=== PATIENT | female | born 1940 | race Caucasian/White ===

== ENCOUNTER → 2016-08-20 | Outpatient (CLI) | payer MEDICARE, BC ==
[~2016-08-20] MED LIST: ACTOS; ALBUTEROL17 GM; ALEVE; AMLODIPINE-OLM1 EACH PO; ASPIRIN81 M2 PO; ASPIRIN81 MG PO; CENTRUM SILVER PO; CLOPIDOGREL75 MG PO; COREG12.5 MG PO; COREG6.25 MG PO; DORZOLAMIDE-TIM10 ML OU; EYE DROP; FAMOTIDINE PO; FERRO-TIME325 MG PO; FERROUS GLUCON325 M1 PO; FERROUS SULFAT325 MG PO; FOSAMAX PO; FUROSEMIDE40 MG PO; GLUCOPHAGE850 MG PO; GLYBURIDE2.5 M1 PO; HCTZ PO; HYDROCODONE-APA1 T30 PO; LASIX PO; LASIX20 MG PO; LIPITOR40 MG PO; LIPITOR80 MG PO; LISINOPRIL20 MG PO; METFORMIN HCL500 M1 PO; METFORMIN HCL500 M4 PO; MONTELUKAST SOD10 MG PO; NITROSTAT0.4 MG SL; OMEPRAZOLE40 M1 PO; OMEPRAZOLE40 MG PO; PIOGLITAZONE HC30 MG PO; PLAVIX PO; PRILOSEC20 M1 PO; PRILOSEC20 MG DOB; PRILOSEC20 MG PO; PROAIR HFA8.5 GM IH; PROAIR HFA8.5 GM INH; SYMBICORT INH; TRUSOPT5 ML; TRUSOPT5 ML OP; TYLENOL PM; VASOTEC; ZOCOR PO
== END | disposition home or self-care (01) ==
LOC: CSSDAY 12:30
DX: M81.0 Age-related osteoporosis without current pathological fracture (principal)
CPT/HCPCS: 82310; 96372; J0897

== ENCOUNTER 2016-09-25 14:22 | Observation (INO) | payer MEDICARE, BC ==
--- NOTE | ~2016-09-25 | CO ---
Unit #: [id number] #: [id number] Patient: MONA BEATTY [id number] [facility] [address] [place], [place] [address] [id number] I MR#: [id number] NAME: MONA BEATTY ROOM: 339 Age: 75 Sex: F Admission Date: 09/25/2016 : 1940 Attending Physician: Niraj Crabtree M.D. Primary Care Physician: Hayder Verduzco M.D. Requesting Physician: Niraj Crabtree M.D. Consultation Date: 09/26/2016 CONSULTATION REPORT REASON FOR CONSULT Altered mental status. PATIENT IDENTIFICATION This is a 75-year-old, right-handed female evaluated in room 339 at [facility]. SOURCE OF INFORMATION Obtained from the patient and medical record. The patient is a poor historian. HISTORY OF PRESENT ILLNESS This is a 75-year-old, right-handed female with a past medical history of hypertension, hyperlipidemia, diabetes mellitus, CHF, who presents to [facility] with change in mental status. The patient reports that she has been having left facial and left arm paresthesia that is persisting. I called the patient's daughter with no answer. I called her on her home phone and also her cell phone this morning. I called her again this afternoon on her cell phone and I am unable to reach her. The patient is a very poor historian. She is oriented x2. She thinks it is 2014. She appears to have poor insight, is slow to answer, has trouble with two and three-step commands, otherwise, she is nonfocal on exam. She has no sensory findings or motor findings. No aphasia or vision changes. She does have lower extremity weakness bilaterally but reports that this is chronic. She denies any new focal leg weakness. Her speech is intact. She had a head CT done in the ER that was unremarkable. Looking in the ER notes, apparently, she presented with confusion. Onset not confirmed. Reported here in the ER notes confusion, disorientation, memory lapses for several days and baseline is normally oriented x4 and walks without assistance. She apparently had been off balance. Again, the patient is a very poor historian. She is anxious and has difficulty explaining why she is here. She tells me that she thinks she is having trouble with her memory. She states that she gets confused. She says she does not really remember much about yesterday and tells me I should call her daughter. Again, I tried to call her daughter twice with no answer and there is no family here. Her daughter is listed as her next of kin. Otherwise, her lab workup and diagnostic studies have been essentially unremarkable. PAST MEDICAL HISTORY 1. COPD. 2. Arthritis. 3. CAD. Unit #: [id number] #: [id number] Patient: MONA BEATTY 4. Esophageal stricture. 5. Large hiatal hernia. 6. Esophagitis. 7. Heart failure. 8. Hypertension. 9. Hyperlipidemia. 10. Diabetes mellitus. 11. Iron deficiency anemia. 12. Breast cancer status post mastectomy. 13. GERD. 14. TIA. 15. Appendectomy. 16. Bilateral knee replacement. SOCIAL HISTORY According to documentation, she is a reformed tobacco user. No known illicit drug use or alcohol abuse. She tells me she lives alone in an apartment. When I asked her if she is independent, she states that she essentially is. I asked her if she pays her own bills. She said she "tries to". I asked her if she cooks meals for herself and she says that she does when she is not tired. Apparently, she does have a son and daughter that live in the area. Otherwise, the patient is a very poor historian. FAMILY HISTORY Unknown. ALLERGIES 1. Penicillin. 2. Cephalosporins. 3. Carbopenems. 4. Morphine. HOME MEDICATIONS As per medication reconciliation form, include: 1. Metformin 500 mg p.o. daily. 2. Omeprazole 40 mg p.o. b.i.d. 3. Pioglitazone 30 mg p.o. every morning. 4. Amlodipine/olmesartan 5/20 mg one tab p.o. daily. 5. Plavix 75 mg p.o. daily. 6. It is documented that she takes aspirin at home. The patient is unable to tell me whether she does. In past discharge summaries, it looks as though she was sent home on aspirin and Plavix. 7. Dorzolamide/timolol. 8. Ferrous sulfate. REVIEW OF SYSTEMS A 14-point review of systems was attempted but the patient is a very poor historian, otherwise, pertinent positives are as discussed above. She denies any headache, any recent fever or chills or any illness. She denies any focal weakness. She denies any speech or swallowing difficulty or vision change, any chest pain or shortness of breath. She states that she has been having spells of altered mental status. She does not remember coming to the hospital yesterday. She states she feels confused at times. At this time, she is oriented x2 and states that she has had some left facial and left arm numbness that she states is still present, though she states essentially resolved in the face. Otherwise, review of systems is as discussed above. Unit #: [id number] #: [id number] Patient: MONA BEATTY PHYSICAL EXAMINATION VITAL SIGNS: Temperature 97.0. She has been afebrile. Pulse 101. Respiration 16. Blood pressure 148/78. Her blood pressure in the ER on arrival was 135/70. Oxygen saturation 96%. Height 5'3". Weight 85 lb. BMI 19. NEUROLOGICAL EXAMINATION MENTAL STATUS EXAM: The patient is awake. She is alert. She is oriented to person and place. She thinks it is 2014. She can tell me it is September. She has poor insight. She is slow to answer questions. She gets confused throughout the interview. She is a poor historian. She has trouble following two and three-step commands, otherwise, she is nonfocal. Her speech is clear. She has no aphasia. CRANIAL NERVE EXAM: She demonstrates full saba of vision. Eyes are conjugate with ptosis or nystagmus. Extraocular movements are intact. Sensation of face and scalp is intact. Strength of muscles of facial expression is intact. Hearing is intact to conversation. Tongue is midline, unable to visualize uvula and palate. Head turning and shoulder shrug are unremarkable. Neck is supple. MOTOR EXAM: She has some generalized weakness but a little bit worse in the lower extremities but is nonfocal. She appears to be 4/5 in the lower extremities, 5-/5 in the upper extremities. SENSORY EXAM: Intact. Gait and Romberg deferred. REFLEXES: Unable to elicit. Toes are equivocal. COORDINATION: Unremarkable. DIAGNOSTIC STUDIES LABORATORY: B12 254, folate greater than 23.6. Urinalysis unremarkable. Troponin less than 0.05. BMP unremarkable as in a sodium of 133 and a glucose of 148. PT 11.2, INR 1.0, PTT 29.7. CBC unremarkable with a white count of 6.6. Glucose on arrival 165. IMAGING: CT of head without contrast: No acute intracranial findings. Chest x-ray: No acute cardiopulmonary findings or significant interval change. CARDIOVASCULAR: EKG: Normal sinus rhythm. IMPRESSION 1. Change in mental status, recent onset over the last two to three days, reports of focal paresthesia with no focal findings on exam. MRI of the brain without and with contrast has been ordered and is pending. EEG is unremarkable. 2. Mild cognitive impairment, questionable baseline as the patient states she lives alone. 3. History of breast cancer. 4. History of COPD. 5. History of CAD. 6. Diabetes mellitus type 2. 7. Other medical issues as discussed above. PLAN Request MRI of the brain which is pending to further evaluate (1) attempt to get a better history from the patient's daughter. I have attempted to call her twice. The patient takes Plavix and we have added aspirin, though need to confirm if she takes both at home. Further recommendations pending workup and further clinical course. Unit #: [id number] #: [id number] Patient: MONA BEATTY Please call for any questions or issues. We thank you very much for allowing us to assist in the care of this patient. Dictated by... Hollie Ramirez A.P.R.N. for Leanna Calderón/álvaro TD: 09/27/2016 09:24 JOB #: [id number] CONSULTATION REPORT Page 1 of 1 X Hollie Ramirez APRN X CONSULTATION REPORT
--- NOTE | ~2016-09-25 | MR18 ---
[facility] A Service of [facility] & [facility] RADIOLOGY TEXT RESULTS PATIENT: MONA BEATTY LOCATION: [facility] 339-01 : 42 UNIT #: [id number] AGE: [address]: Niraj Crabtree MD SEX: F ORDER DR: [id number] [facility] [address] [place], [place] [address] [id number] I MR#: [id number] #: [id number] NAME: MONA BEATTY : 1940 SEX: F STUDY DATE/TIME: 09/26/2016 17:55 UNIT: A PCU ROOM: 339 STUDY DESCRIPTION: MR Brain Wo Contrast Attending Physician: Niraj Crabtree M.D. Ordering Physician: Romel Hernandez M.D. Primary Care Physician: Hayder Verduzco M.D. MRI CENTER REPORT This report is preliminary unless electronic signature is present. EXAM MRI brain 09/26/2016 HISTORY Mental status changes. Focal paresthesia. Patient fell backwards and hit head March 2016 now headaches left facial droop, disoriented left arm numbness, confusion since 09/20/2016 left breast cancer times 12 years. FINDINGS Following MR sequences were obtained through the brain: T1 sagittal, FLAIR sagittal, FLAIR and T2 axial, diffusion weighted and ADC map axial, patient terminated the examination prior to completion. Postcontrast enhanced images not obtained. Comparison to CT brain 09/25/2016. CT brain showed no acute appearing abnormality. Current examination significantly limited by motion artifact on multiple sequences. The brainstem shows patchy areas of FLAIR and T2 hyperintensity. No corresponding diffusion-weighted abnormality. I favor these represent areas of chronic small vessel ischemic change. The cerebellum and cerebral hemispheres show no diffusion weighted hyperintensity to indicate acute to subacute ischemic change. Other sequences show no indication of hemorrhage. The midline structures are nondisplaced. No acute-appearing basal ganglia abnormality. There are patchy periventricular and deep white matter tract FLAIR and T2 hyperintensities. These are bilateral and relatively symmetric and favored to represent sequelae of chronic microvascular ischemia. They are somewhat nonspecific in the appropriate clinical context, other etiologies inclusive of sequelae of chronic migraine or less likely a demyelinating process such as MS could be considered. Chronic small vessel ischemic change favored. Ventricles, cisterns and sulci show mild generalized enlargement consistent with mild generalized atrophy. There is no intra or extraaxial mass effect or abnormal intracranial fluid collection. Intraorbital soft tissues grossly unremarkable. The major vascular flow STS. [facility] A Service of [facility] & [facility] RADIOLOGY TEXT RESULTS PATIENT: MONA BEATTY LOCATION: [facility] 339-01 : 42 UNIT #: [id number] AGE: [address]: Niraj Crabtree MD SEX: F ORDER DR: voids appear grossly patent. IMPRESSION 1. Patient terminated examination early. Her wishes were respected. Study significantly degraded by motion artifact on multiple sequences. 2. No acute abnormality is seen on the images provided. There is no evidence of acute to subacute ischemic change or acute hemorrhage. 3. No intracranial mass effect or abnormal fluid collection suggested. 4. Periventricular and deep white matter tract probable sequelae of chronic microvascular ischemia. See discussion in body of report. 5. Mild generalized atrophy. Dictated by... Jake Collier M.D. THIS IS AN ELECTRONICALLY VERIFIED REPORT Jake Collier M.D. at 09/27/2016 7:57 PM ABHILASH/dionicio TD: 09/26/2016 19:15 JOB #: [id number] MRI CENTER REPORT Page 1 of 1 COPY
--- NOTE | ~2016-09-25 | DS ---
Unit #: [id number] #: [id number] Patient: MONA BEATTY [id number] [address] [place], [place] [address] [id number] I MR#: [id number] NAME: MONA BEATTY ROOM: 339 Age: 75 Sex: F Admission Date: 09/25/2016 : 1940 Discharge Date: 09/27/2016 Attending Physician: Niraj Crabtree M.D. Primary Care Physician: Hayder Verduzco M.D. DISCHARGE SUMMARY DISCHARGE DIAGNOSES 1. Toxic metabolic encephalopathy. 2. Likely underlying significant dementia. 3. Abnormal MRI of the brain, possible multiple sclerosis per Dr. Hernandez's interpretation. 4. History of chronic obstructive pulmonary disease. 5. History of coronary artery disease. 6. Esophageal stricture. 7. History of hypertension. 8. Hyperlipidemia. 9. Diabetes. HOME MEDICATIONS Metformin 500 mg daily, pioglitazone 30 mg in the morning, amlodipine/olmesartan 5/20 once a day, iron 1 tablet twice a day, Plavix 75 mg a day, Prilosec 40 mg twice a day. She is on timolol and dorzolamide eyedrops, which she will continue. FOLLOWUP 1. Follow up with Dr. Verduzco for her general medical care. 2. Follow up with [facility] for further investigation of possible MS. DIET As tolerated. ACTIVITY We have suggested no driving. PROCEDURES PERFORMED EEG, normal. CT brain, atrophy. MRI brain, severe atrophy, changes read by Dr. Hernandez, consistent with multiple sclerosis; however, MRI was technically difficult because of the patient's cooperation. Chest x-ray, no acute disease. DESCRIPTION OF HOSPITALIZATION The patient was admitted to the emergency room with an episode of confusion. She basically had returned to baseline, but all workup was negative and the ER physician wanted her admitted for further evaluation. She was observed with frequent neuro checks. Speech Pathology saw the patient and felt it was okay for basically a regular diet with thin liquids. Neurology saw the patient, added MRI and EEG with results as Unit #: [id number] #: [id number] Patient: MONA BEATTY above. They thought that she can go home with no further inpatient evaluation. She felt that she likely had underlying significant dementia with intermittent periods of confusion. She was instructed not to drive. Attempts at contacting her family at least 3 times yesterday were unsuccessful. Neurology states that they will try to contact the family once again today. At the time of discharge, the patient was asking appropriate questions. She was asking for discharge and stated she can perform all activities of daily living. Dictated by... Leanna Sosa/annie TD: 09/28/2016 13:57 JOB #: [id number] CC: Romel Hernandez M.D. DISCHARGE SUMMARY Page 1 of 1 X Niraj Crabtree MD X DISCHARGE SUMMARY
--- NOTE | ~2016-09-25 | CT71 ---
[facility] A Service of [facility] / [facility] RADIOLOGY TEXT RESULTS PATIENT: MONA BEATTY LOCATION: [facility] : 42 UNIT #: [id number] AGE: [address]: Niraj Crabtree MD SEX: F ORDER DR: [id number] [facility] [address] [place], [place] [address] [id number] I MR#: [id number] Acc #: [id number] NAME: MONA BEATTY : 1940 SEX: F STUDY DATE/TIME: 09/25/2016 18:27 UNIT: [facility] PCU ROOM: [facility] STUDY DESCRIPTION: CT Head Wo Contrast Attending Physician: Niraj Crabtree M.D. Ordering Physician: Ralph Collado M.D. Primary Care Physician: Hayder Verduzco M.D. MEDICAL IMAGING REPORT This report is preliminary unless electronic signature is present EXAM CT head without contrast INDICATIONS Left facial droop. Disorientation, left arm numbness and confusion beginning on 09/20/2016. PROCEDURE Unenhanced CT of the head. COMPARISON None FINDINGS No acute hemorrhage, abnormal mass effect, extraaxial fluid collection or hydrocephalus. No evidence for an acute or early subacute large territory infarct. No depressed calvarial fracture. Paranasal sinuses, mastoid air cells clear. Bilateral TMJ arthrosis, left greater than right. IMPRESSION No acute intracranial findings. Dictated by... Flakito Benavidez M.D. THIS IS AN ELECTRONICALLY VERIFIED REPORT Flakito Benavidez M.D. at 09/26/2016 10:39 AM GUILHERME/lise TD: 09/25/2016 19:17 JOB #: [id number] [facility] A Service [facility] RADIOLOGY TEXT RESULTS PATIENT: MONA BEATTY LOCATION: [facility] : 42 UNIT #: [id number] AGE: [address]: Niraj Crabtree MD SEX: F ORDER DR: MEDICAL IMAGING REPORT Page 1 of 1 COPY
--- NOTE | ~2016-09-25 | HP ---
Unit #: [id number] #: [id number] Patient: MONA BEATTY [id number] [address] [address] [id number] I MR#: [id number] NAME: MONA BEATTY ROOM: 339 Age: 75 Sex: F Admission Date: 09/25/2016 : 1940 Attending Physician: Niraj Crabtree M.D. Primary Care Physician: Hayder Verduzco M.D. HISTORY AND PHYSICAL CHIEF COMPLAINT Confusion and left sided weakness. HISTORY OF PRESENT ILLNESS 75-year-old female who is a somewhat poor historian, apparently had some confusion and she said left sided weakness. According to the ER physician, she did have some episodes of confusion, but he did not mention any focal weakness to me on the phone. She now says that she feels much better. Workup in the ER was unremarkable. However, it was felt she needed possible further evaluation. PAST MEDICAL HISTORY Remarkable for: 1. COPD. 2. Severe arthritis. 3. Coronary artery disease. 4. Esophageal stricture. 5. Large hiatal hernia. 6. Esophagitis. 7. Heart failure. 8. Hypertension. 9. Hyperlipidemia. 10. Diabetes. MEDICATIONS Medicines at home - she takes: 1. Eyedrops. 2. Iron. 3. Metformin. 4. Prilosec. 5. Pioglitazone. 6. Combination of amlodipine and olmesartan 09/28. 7. Plavix 75 mg a day. ALLERGIES Penicillin which causes a rash, cephalosporins, carbapenems. Morphine causes nausea and vomiting. SOCIAL HISTORY She is a reformed tobacco user. FAMILY HISTORY Heart disease. No familial lung disease. Unit #: [id number] #: [id number] Patient: MONA BEATTY REVIEW OF SYSTEMS She denies fever, chills, weight loss. No difficulty swallowing although the nurses have asked for a swallow eval. No shortness of breath, wheezing, sputum production, chest pain, palpitations, abdominal pain, melena, hematochezia, hematuria, dysuria. She did have this generalized weakness of her left arm and possibly leg that has resolved. No leg pain or swelling. Further review of systems negative. PHYSICAL EXAMINATION GENERAL: The patient is elderly but in no acute distress. VITAL SIGNS: Afebrile. Pulse 98, respiratory rate 16, blood pressure 134/68, 5 foot 3, 85 pounds, BMI is 19. HEENT: Pupils equal, round, reactive to light. Sclerae anicteric. Head atraumatic. Neck is supple. No supraclavicular or cervical adenopathy appreciated. Mucous membranes moist. Teeth are in reasonable dentition. CHEST: Clear with mild decreased breath sounds. No wheeze, stridor or consolidation. CARDIAC EXAMINATION: Regular rate and rhythm. No definite murmur, rub or gallop. I did not hear any definite carotid bruits although she had a difficult time holding her breath. ABDOMEN: Soft, nontender. No hepatomegaly or rebound. EXTREMITIES: No clubbing, cyanosis or edema. No calf tenderness. NEUROLOGICAL: To my exam, she had generalized weakness but there was no focality. DIAGNOSTIC STUDIES LABORATORY: BUN 18, creatinine 0.7, sodium 133. Remainder of her CMP was normal. INR normal. Cardiac enzymes normal. CBC normal. Urinalysis - no evidence of infection. IMAGING: Head CT - atrophy. No acute problems. Chest x-ray - no acute disease. IMPRESSION 1. Confusion, possible left sided weakness, now resolved. 2. Chronic obstructive pulmonary disease, stable. 3. Severe arthritis, stable. 4. Coronary artery disease, stable. 5. All medical problems appear to be stable at this time. PLAN Admission to the hospital. Neuro checks. I have asked neurology to evaluate the patient to see if any further testing is required. Dictated by Leanna Sosa/harlan TD: 09/26/2016 10:37 JOB #: [id number] Unit #: [id number] #: [id number] Patient: MONA BEATTY HISTORY AND PHYSICAL Page 1 of 1 X Niraj Crabtree MD HISTORY AND PHYSICAL
--- NOTE | ~2016-09-25 | EE ---
Unit #: [id number] #: [id number] Patient: MONA BEATTY [id number] [address] [address] [id number] I MR#: [id number] NAME: MONA BEATTY : 1940 SEX: F STUDY DATE/TIME: 09/26/2016 UNIT: C3A PCU ROOM: [facility] STUDY DESCRIPTION: EEG Attending Physician: Niraj Crabtree M.D. Primary Care Physician: Hayder Verduzco M.D. NEURODIAGNOSTICS REPORT EXAM EEG CHIEF COMPLAINT Confusion and mental status change. DESCRIPTION EEG was obtained in awake and drowsy states using the 10-20 International Montage System with photic stimulation. EEG showed well-organized 9 to 10 Hz range background activity from posterior regions which was symmetric between the hemispheres. There were no epileptiform discharges present and there were no focal signs. Response to photic stimulation was adequate. IMPRESSION Normal EEG in the awake and drowsy states. Dictated by... Leanna Calderón/ismael TD: 09/26/2016 22:42 JOB #: [id number] NEURODIAGNOSTICS REPORT Page 1 of 1 X Chantel Zepeda MD NEURODIAGNOSTICS REPORT
--- NOTE | ~2016-09-25 | EKG ---
PATIENT: MONA BEATTY UNIT #: [id number] Ventricular Rate: 95 BPM Atrial Rate: 95 BPM P-R Interval: 164 ms QRS Duration: 62 ms Q-T Interval: 356 ms QTC Calculation(Bezet): 447 ms P [place]: 45 degrees Calculated R [place]: -8 degrees Diagnosis Line: Normal sinus rhythm Diagnosis Line: Minimal voltage criteria for LVH, may be normal Diagnosis Line: variant Diagnosis Line: Inferior infarct (cited on or before 22-MAR-2015) Diagnosis Line: Abnormal ECG Diagnosis Line: When compared with ECG of 23-MAR-2015 09:43, Diagnosis Line: No significant change was found Diagnosis Line: Confirmed by AMADEO GONZALEZ MD ([id number]) on 09/26/2016 Diagnosis Line: 10:38:34 AM INTERPRETING MD: CARLOS GOYAL
--- NOTE | ~2016-09-25 | CR72 ---
[facility] A Service of [facility] & [facility] RADIOLOGY TEXT RESULTS PATIENT: MONA BEATTY LOCATION: [facility] [id number] : 42 UNIT #: [id number] AGE: [address]: Niraj Crabtree MD SEX: F ORDER DR: [id number] [facility] [address]. [place], [place] [address] [id number] MR#: [id number] Acc #: [id number] NAME: MONA BEATTY : 1940 SEX: F STUDY DATE/TIME: 09/25/2016 17:50 UNIT: [facility] ROOM: STUDY DESCRIPTION: CR Chest Single View Portable Attending Physician: Ralph Collado M.D. Ordering Physician: Ralph Collado M.D. Primary Care Physician: Hayder Verduzco M.D. MEDICAL IMAGING REPORT This report is preliminary unless electronic signature is present EXAM Single view chest 09/25/2016 INDICATIONS Altered mental status. Stroke-like symptoms. Shortness of air. FINDINGS Single portable AP view of the chest compared to 02/14/2016. Heart and mediastinal contours are unchanged. Patient has some coronary artery stents. The lungs are hyperinflated suggesting obstructive lung disease. No focal consolidation. IMPRESSION No acute cardiopulmonary findings or significant interval change. Dictated by... Bakari Isaac M.D. THIS IS AN ELECTRONICALLY VERIFIED REPORT Bakari Isaac M.D. at 09/25/2016 9:46 PM ERLINDA/margarita TD: 09/25/2016 18:44 JOB #: [id number] MEDICAL IMAGING REPORT Page 1 of 1 COPY
[2016-09-25 17:03] LABS: BASOPHIL% 0.7 % (0-2.5); EOSINOPHIL% 0.3 % (0.0-7.0); HEMATOCRIT 42.6 % (35.0-45.0); HEMOGLOBIN 14.1 gm/dL (12.0-16.0); LYMPHOCYTE# 1.6 X10e3 (1.0-3.5); LYMPHOCYTE% 24.9 % (17.0-45.0); MEAN CELL VOLUME 84.8 FL (83-96); MEAN CORPUSCULAR HEMOGLOBIN 28.1 PG (28-34); MEAN CORPUSCULAR HGB CONC 33.1 g/dL (30-36); MEAN PLATELET VOLUME 7.7 FL (6.5-11.5); MONOCYTE# 0.5 X10e3 (0-1.0); MONOCYTE% 7.5 % (3.0-12.0); NEUTROPHIL# 4.4 X10e3 (1.5-7.1); NEUTROPHIL% 66.6 % (40-75); PLATELET COUNT 253 X10e3 (140-420); RED BLOOD COUNT 5.02 X10e (3.90-5.30); RED CELL DISTRIBUTION WIDTH 15.3 % (11.0-15.5); WHITE BLOOD COUNT 6.6 X10e3 (4.0-10.5)
[2016-09-25 17:09] LABS: DIFF IND NO
[2016-09-25 17:17] LABS: INR 1.1; PARTIAL THROMBOPLASTIN TIME 29.7 SECONDS (23.5-31.3); PROTHROMBIN TIME (PATIENT) 11.2 SECONDS (9.6-11.5)
[2016-09-25 17:33] LABS: POC - CKMB 1.5 ng/mL (0.0-7.9); POC - TROPONIN <0.05 ng/mL (<=0.05)
[2016-09-25 18:12] LABS: ALBUMIN SERUM 4.5 g/dL (3.5-5.0); ALKALINE PHOSPHATASE 58 U/L (32-92); ALT (SGPT) 18 U/L (10-40); AST (SGOT) 15 U/L (10-42); BILIRUBIN,TOTAL 0.5 mg/dL (0.2-2.0); BLOOD UREA NITROGEN 18 mg/dL (9-23); BUN/CREATININE RATIO 25.71; CALCIUM SERUM 9.2 mg/dL (8.4-10.2); CARBON DIOXIDE 23 mmol/L (22-31); CHLORIDE 103 mmol/L (100-111); CREATININE SERUM 0.7 mg/dL (0.6-1.4); GLUCOSE FASTING 148 mg/dL (70-110); POTASSIUM 3.5 mmol/L (3.5-5.1); PROTEIN TOTAL SERUM 7.4 g/dL (6.0-8.3); SODIUM 133 mmol/L (135-145)
[2016-09-25 18:13] LABS: BILIRUBIN, DIRECT <0.1 mg/dL (0.0-0.2); BILIRUBIN,INDIRECT 0.4 mg/dL (0.0-0.9)
[2016-09-25 19:25] LABS: URINE SOURCE CLEAN CATCH
[2016-09-25 19:31] LABS: URINE APPEARANCE CLEAR; URINE BILIRUBIN NEG (NEG); URINE BLOOD NEG (NEG); URINE COLOR YELLOW; URINE GLUCOSE NEG (NEG); URINE KETONE 1+ (NEG); URINE LEUKOCYTE ESTERASE NEG (NEG); URINE NITRATE NEG (NEG); URINE PROTEIN NEG (NEG)
[2016-09-25 19:37] LABS: POC - CKMB 1.2 ng/mL (0.0-7.9); POC - TROPONIN <0.05 ng/mL (<=0.05)
[2016-09-25 19:41] LABS: CULTURE INDICATED? NO
[2016-09-26 13:02] LABS: FOLATE (FOLIC ACID) >23.6 ng/mL (>5.8)
== END 2016-09-27 18:30 | disposition home or self-care (01) ==
LOC: CED 14:22 → C3A PCU 21:20 → CEDOF 21:20 → CED 21:35 → CEDOF 21:35 → C3A PCU 22:20
PROVIDERS: Emergency Medicine; Psychiatry & Neurology Neurology
DX: G92 Toxic encephalopathy (principal); F44.89 Other dissociative and conversion disorders; G93.89 Other specified disorders of brain; G31.89 Other specified degenerative diseases of nervous system; G31.84 Mild cognitive impairment of uncertain or unknown etiology; R20.9 Unspecified disturbances of skin sensation; R93.8 Abnormal findings on diagnostic imaging of other specified body structures; J44.9 Chronic obstructive pulmonary disease, unspecified; I25.10 Atherosclerotic heart disease of native coronary artery without angina pectoris; I10 Essential (primary) hypertension; E78.5 Hyperlipidemia, unspecified; E11.9 Type 2 diabetes mellitus without complications; Z79.84 Long term (current) use of oral hypoglycemic drugs; D50.9 Iron deficiency anemia, unspecified; K22.2 Esophageal obstruction; M19.90 Unspecified osteoarthritis, unspecified site; Z79.01 Long term (current) use of anticoagulants; Z79.899 Other long term (current) drug therapy; Z87.891 Personal history of nicotine dependence; Z85.3 Personal history of malignant neoplasm of breast; Z90.10 Acquired absence of unspecified breast and nipple; Z86.73 Personal history of transient ischemic attack (TIA), and cerebral infarction without residual deficits; Z82.49 Family history of ischemic heart disease and other diseases of the circulatory system; Z80.3 Family history of malignant neoplasm of breast; Z96.653 Presence of artificial knee joint, bilateral; Z90.49 Acquired absence of other specified parts of digestive tract; Z88.5 Allergy status to narcotic agent; Z88.8 Allergy status to other drugs, medicaments and biological substances; Z88.1 Allergy status to other antibiotic agents
CPT/HCPCS: 36415; 51701; 70450; 70551; 71010; 80048; 80076; 81003; 82553; 82607; 82746; 82947; 84484; 85025; 85610; 85730; 92610; 93005; 95816; 99285; G0378; G8996-GN; G8997-GN; J1815; J2060